=== PATIENT | male | born 1985 | race Caucasian/White ===

== ENCOUNTER 2016-12-07 11:04 | Emergency (ER) | payer MEDICARE, MEDICAID ==
[~2016-12-07] VITALS: Ht 172.7 cm; Wt 81.6 kg
[~2016-12-07 11:04] MED LIST: CYCL10TA9 PO; DOCU-143 PO; NAPR-243 PO; PRED20TA PO; TRAM-42 PO
[2016-12-07 11:11] VITALS: BP 133/94
[2016-12-07] MEDS ORDERED: fentaNYL INJECTION 100 MCG/2 ML AMP ONE (11:17)
[2016-12-07] MEDS ORDERED: fentaNYL INJECTION 100 MCG/2 ML AMP IVP STA (11:23)
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
[2016-12-07 11:28] LABS: BASOPHILS # (AUTO) 0.1 10^3/uL (0.0-0.1); BASOPHILS % (AUTO) 1 % (0-10); EOSINOPHILS # (AUTO) 0.2 10^3/uL (0.0-0.3); EOSINOPHILS % (AUTO) 3 % (0-10); LYMPHOCYTES # (AUTO) 3.2 X 10^3 (1.0-4.0); LYMPHOCYTES % (AUTO) 38 % (12-44); MEAN CORPUSCULAR HEMOGLOBIN 30 PG (25-34); MEAN CORPUSCULAR HGB CONC 34 G/DL (32-36); MEAN CORPUSCULAR VOLUME 89 FL (80-99); MEAN PLATELET VOLUME 9.8 FL (7.4-10.4); MONOCYTES # (AUTO) 0.6 X 10^3 (0.0-1.0); MONOCYTES % (AUTO) 8 % (0-12); NEUTROPHILS # (AUTO) 4.2 X 10^3 (1.8-7.8); NEUTROPHILS % (AUTO) 51 % (42-75); PLATELET COUNT 259 10^3/uL (130-400); RED BLOOD COUNT 5.16 10^6/uL (4.35-5.85); RED CELL DISTRIBUTION WIDTH 12.8 % (10.0-14.5); WHITE BLOOD COUNT 8.2 10^3/uL (4.3-11.0)
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
[2016-12-07 12:00] LABS: ANION GAP 8 MMOL/L (5-14); BLOOD UREA NITROGEN 8 MG/DL (7-18); BUN/CREATININE RATIO 9; CALCIUM 9.1 MG/DL (8.5-10.1); CARBON DIOXIDE 25 MMOL/L (21-32); CHLORIDE 106 MMOL/L (98-107); CREATININE SERUM 0.92 MG/DL (0.60-1.30); GFR ESTIMATED > 60; GLUCOSE 89 MG/DL (70-105); POTASSIUM 4.7 MMOL/L (3.6-5.0); SODIUM 139 MMOL/L (135-145)
[2016-12-07] MEDS ORDERED: SULF1TAB35 PO (12:35)
[2016-12-07] MEDS ORDERED: HYDR-3812 PO (12:35)
== END 2016-12-07 12:44 | disposition home or self-care (01) ==
LOC: EDUNIT# 11:04 → ER 11:05
DX: S21.149A Puncture wound with foreign body of unspecified front wall of thorax without penetration into thoracic cavity, initial encounter (principal); F17.210 Nicotine dependence, cigarettes, uncomplicated; X95.01XA Assault by airgun discharge, initial encounter
CPT/HCPCS: 36415; 71010; 80048; 85025

== ENCOUNTER 2016-12-23 00:20 | Emergency (ER) | payer MEDICAID, MEDICARE ==
[~2016-12-23] VITALS: Ht 172.7 cm; Wt 72.6 kg
[~2016-12-23 00:20] MED LIST changes: +HYDR-3812 PO; +SULF1TAB35 PO
[2016-12-23] MEDS ORDERED: SULF1TAB35 PO (00:39)
[2016-12-23] MEDS ORDERED: MUPI15CR TP (00:39)
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
[2016-12-23 00:43] VITALS: BP 115/75
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
== END 2016-12-23 00:43 | disposition home or self-care (01) ==
LOC: EDUNIT# 00:20 → ER 00:23
DX: R23.8 Other skin changes (principal); G40.909 Epilepsy, unspecified, not intractable, without status epilepticus; F17.210 Nicotine dependence, cigarettes, uncomplicated; Z86.14 Personal history of Methicillin resistant Staphylococcus aureus infection
CPT/HCPCS: 99282

== ENCOUNTER 2017-11-25 15:26 | Emergency (ER) | payer MEDICAID ==
[~2017-11-25] VITALS: Ht 172.7 cm; Wt 81.6 kg
[~2017-11-25 15:26] MED LIST changes: +ACHD5005 PO; -HYDR-3812 PO; +MUPI15CR TP
[2017-11-25] MEDS ORDERED: PRD20T PO (16:32)
--- NOTE | 2017-11-25 16:32 | ED General ---
General Chief Complaint: Lower Extremity Stated Complaint: RIGHT SIDE HIP/NERVE PAIN Nursing Triage Note: pt reports r hip pain x 2 months that is not getting better. Pt reports it shoot down r leg. Nursing Sepsis Screen: No Definite Risk Source of Information: Patient Exam Limitations: No Limitations History of Present Illness Date Seen by Provider: November 25, 2017 Time Seen by Provider: 16:00 Initial Comments This 32-year-old young man presents to the emergency room with 2 months of pain originating at the right SI area and buttocks and radiating down toward the right knee. Last night it was quite exacerbated and he had difficulty sleeping. He also had difficulty getting out of bed this morning so he decided to come to the emergency room. He reports his hip has been out of alignment for about 2 months and he has been seeing a chiropractor for that. His last adjustment was about one month ago. He has not been taking any medications such as Tylenol or ibuprofen. He is unemployed at the moment and has no strenuous activity. He denies any drug or alcohol use. He reports he was on disability for ADHD. Allergies and Home Medications Allergies Coded Allergies: No Known Drug Allergies (Unverified , 11/29/11) Home Medications Mupirocin Calcium 15 Gm Cream..g., 15 GM TP BID Prescribed by: JACLYN HILL on 12/23/1638 Prednisone 20 Mg Tab, 20 MG PO DAILY Prescribed by: LORA MANSFIELD on 11/25/17 1632 Sulfamethoxazole/Trimethoprim 1 Each Tablet, 1 EACH PO BID Prescribed by: WENDY MUSA on 12/07/16 1235 Sulfamethoxazole/Trimethoprim 1 Each Tablet, 1 EACH PO BID Prescribed by: JACLYN HILL on 12/23/16 003 Patient Home Medication List Home Medication List Reviewed: Yes Review of Systems Constitutional: no symptoms reported EENTM: no symptoms reported Respiratory: no symptoms reported Cardiovascular: no symptoms reported Gastrointestinal: no symptoms reported Genitourinary: no symptoms reported Musculoskeletal: see HPI Skin: no symptoms reported Psychiatric/Neurological: No Symptoms Reported Hematologic/Lymphatic: No Symptoms Reported Immunological/Allergic: no symptoms reported Past Weykabv-Sdwnad-Nyslnj Hx Patient Social History Alcohol Use: Occasionally Uses Recreational Drug Use: No Smoking Status: Current Everyday Smoker Type Used: Cigarettes 2nd Hand Smoke Exposure: Yes Recent Foreign Travel: No Contact w/Someone Who Travel: No Recent Infectious Disease Expo: No Recent Hopitalizations: No Physical Abuse: No Sexual Abuse: No Mistreated: No Fear: No Immunizations Up To Date Tetanus Booster (TDap): Less than 5yrs Seasonal Allergies Seasonal Allergies: No Past Medical History Surgeries: No Respiratory: No Cardiac: No Neurological: Yes (X1 SEIZURE AT 6 YRS OF AGE) Seizure Disorder Genitourinary: No Gastrointestinal: No Musculoskeletal: No Endocrine: No HEENT: No Cancer: No Did You Recieve Any Treatments: No Psychosocial: No Nursing Suicide Risk Score: 0 Integumentary: No Blood Disorders: No Physical Exam Vital Signs Vital Signs - First Documented 11/25/17 15:44 Temp 96.7 Pulse 90 Resp 20 B/P (MAP) 121/59 (79) Pulse Ox 99 Capillary Refill : Less Than 3 Seconds General Appearance: No Apparent Distress, WD/WN, Thin HEENT: PERRL/EOMI, Normal ENT Inspection Respiratory: Lungs Clear, Normal Breath Sounds, No Accessory Muscle Use, No Respiratory Distress Cardiovascular: Regular Rate, Rhythm, No Edema, No Murmur Back: Normal Inspection, No Vertebral Tenderness, Other (Is a tender spasmed muscle above the right SI joint) Extremity: Normal Inspection, No Pedal Edema, Other (No significant piriformis tenderness) Neurologic/Psychiatric: Alert, Oriented x3, No Motor/Sensory Deficits, Normal Mood/Affect, 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 Skin: Normal Color, Warm/Dry Progress/Results/Core Measures Suspected Sepsis Recent Fever Within 48 Hours: No Infection Criteria Present: None New/Unexplained Altered Menta: No Sepsis Screen: No Definite Risk SIRS Temperature:96.7 Pulse: 90 Respiratory Rate: 20 Blood Pressure 121 /59 Mean: 79 Results/Orders Vital Signs/I&O Capillary Refill : Less Than 3 Seconds Blood Pressure Mean: 79 Departure Impression Primary Impression: Muscle spasm of back Additional Impression: Sciatica Qualified Codes: M54.30 - Sciatica, unspecified side Disposition: 01 HOME, SELF-CARE Condition: Improved Departure-Patient Inst. Decision time for Depature: 16:28 Referrals: NO,LOCAL PHYSICIAN (PCP/Family) Primary Care Physician Patient Instructions: Sciatica, Sciatica Exercises Add. Discharge Instructions: Take ibuprofen up to 600 mg every 6 hours as needed for pain. Add Tylenol ( acetaminophen) up to 1000 mg every 6 hours as needed for additional pain relief. Complete the prednisone prescription as prescribed. You may use gentle heat such as a heating pad on low setting to help relax the sore muscles. Follow-up with your primary care provider next week if not improving as expected. Return to care if symptoms worsen, especially if you develop difficulty walking due to weakness, dysfunction of your bowels, or difficulty with urination. All discharge instructions reviewed with patient and/or family. Voiced understanding. Scripts Prednisone (Prednisone) 20 Mg Tab 20 MG PO DAILY, #4 TAB Prov: LORA HERRING MD 11/25/17 LORA HERRING MD November 25, 2017 16:32
[2017-11-25 16:37] VITALS: BP 125/87
== END 2017-11-25 16:35 | disposition home or self-care (01) ==
LOC: EDUNIT# 15:26 → ER 15:27
DX: M54.31 Sciatica, right side (principal); M62.830 Muscle spasm of back; F90.9 Attention-deficit hyperactivity disorder, unspecified type; G40.909 Epilepsy, unspecified, not intractable, without status epilepticus; F17.210 Nicotine dependence, cigarettes, uncomplicated; Z79.52 Long term (current) use of systemic steroids
CPT/HCPCS: 99283

== ENCOUNTER 2018-09-16 19:13 | Emergency (ER) | payer SELFPAY ==
[~2018-09-16] VITALS: Ht 172.7 cm; Wt 90.7 kg
[~2018-09-16 19:13] MED LIST changes: +PRD20T PO
--- NOTE | 2018-09-16 19:36 | ED Cough/URI ---
General Chief Complaint: Cough/Cold/Flu Symptoms Stated Complaint: FEVER Source: patient Exam Limitations: no limitations History of Present Illness Date Seen by Provider: Sep 16, 2018 Time Seen by Provider: 19:35 Initial Comments To ER per private vehicle with reports of a three-day history of nonproductive cough, fever up to 104, sore throat and rhinorrhea. Timing/Duration: other (3 days) Severity/Quality: dry cough Associated Symptoms: cough, fever/chills, shortness of breath Allergies and Home Medications Allergies Coded Allergies: No Known Drug Allergies (Unverified , 11/29/11) Home Medications No Active Prescriptions or Reported Meds Patient Home Medication List Home Medication List Reviewed: Yes Review of Systems Review of Systems Constitutional: see HPI, fever, malaise EENTM: see HPI Respiratory: see HPI, cough Cardiovascular: no symptoms reported Genitourinary: no symptoms reported Musculoskeletal: no symptoms reported Skin: no symptoms reported Psychiatric/Neurological: No Symptoms Reported Hematologic/Lymphatic: No Symptoms Reported Past Cdzmluq-Rxpybp-Heorcb Hx Patient Social History Alcohol Use: Occasionally Uses Recreational Drug Use: No Smoking Status: Current Everyday Smoker Type Used: Cigarettes 2nd Hand Smoke Exposure: Yes Recent Foreign Travel: No Contact w/Someone Who Travel: No Recent Hopitalizations: No Immunizations Up To Date Tetanus Booster (TDap): Less than 5yrs Seasonal Allergies Seasonal Allergies: No Past Medical History Surgeries: No Respiratory: No Cardiac: No Neurological: Yes (as child) Seizure Disorder Genitourinary: No Gastrointestinal: No Musculoskeletal: No Endocrine: No HEENT: No Cancer: No Did You Recieve Any Treatments: No Psychosocial: No Integumentary: No Blood Disorders: No Physical Exam Vital Signs - First Documented 09/16/18 19:22 Temp 102.5 Pulse 106 Resp 18 B/P (MAP) 118/71 (87) Pulse Ox 96 O2 Delivery Room Air Capillary Refill : Height: 5'8.00" Weight: 180lbs. oz. 81.204722wj; 21.09 BMI Method:Stated General Appearance: WD/WN, no apparent distress Eyes: Bilateral Eye Normal Inspection, Bilateral Eye PERRL, Bilateral Eye EOMI HEENT: PERRL/EOMI, normal ENT inspection, TMs normal, pharyngeal erythema Neck: non-tender, full range of motion Respiratory: normal breath sounds, no respiratory distress, no accessory muscle use Cardiovascular: regular rate, rhythm Gastrointestinal: normal bowel sounds, non tender, soft Neurologic/Psychiatric: alert, normal mood/affect, oriented x 3 Skin: normal color, warm/dry Progress/Results/Core Measures Suspected Sepsis SIRS Temperature: Pulse: Respiratory Rate: Blood Pressure / Mean: Results/Orders Micro Results Microbiology 09/16/18 Influenza Types A,B Antigen (LUANA) - Final, Complete My Orders Orders - GEORGES WILKERSON APRN Chest Pa/Lat (2 View) (09/16/18 19:33) Influenza A And B Antigens (09/16/18 19:33) Ibuprofen Tablet (Motrin Tablet) (09/16/18 19:45) Acetaminophen Tablet (Tylenol Tablet) (09/16/18 19:45) Medications Given in ED Current Medications Medications Dose Ordered Sig/Erasmo Route Start Time Stop Time Status Last Admin Dose Admin Acetaminophen 1,000 mg ONCE ONCE PO 09/16/18 19:45 09/16/18 19:46 DC 09/16/18 19:41 1,000 MG Ibuprofen 800 mg ONCE ONCE PO 09/16/18 19:45 09/16/18 19:46 DC 09/16/18 19:41 800 MG Vital Signs/I&O 09/16/18 09/16/18 09/16/18 09/16/18 19:22 19:22 19:41 19:41 Temp 102.5 102.5 102.5 Pulse 106 Resp 18 B/P (MAP) 118/71 (87) Pulse Ox 96 O2 Delivery Room Air Room Air Capillary Refill : Departure Impression Primary Impression: Influenza Disposition: 01 HOME, SELF-CARE Condition: Stable Departure-Patient Inst. Decision time for Depature: 20:06 Referrals: NO,LOCAL PHYSICIAN (PCP/Family) Primary Care Physician Patient Instructions: Flu Add. Discharge Instructions: 1. Tylenol and Motrin for pain and fever control 2. Ensure that you drink plenty of fluids, Gatorade Pedialyte or water are fine. All discharge instructions reviewed with patient and/or family. Voiced understanding. Scripts No Active Prescriptions or Reported Meds Work/School Note: Work Release Form Date Seen in the Emergency Department: Sep 16, 2018 Return to Work: Sep 20, 2018 GEORGES WILKERSON APRN Sep 16, 2018 19:36
[2018-09-16] MEDS ORDERED: IBUPROFEN 800 MG (MOTRIN) TAB PO ONE (19:45)
[2018-09-16] MEDS ORDERED: ACETAMINOPHEN 500 MG TAB (TYLENOL) PO ONE (19:45)
[2018-09-16 20:54] VITALS: BP 121/74
--- NOTE | 2018-09-16 21:16 | Diagnostic Imaging Report ---
CHEST PA/LAT (2 VIEW) Indication: Coughing Comparison: 12/07/2016 Findings: No focal pneumonic consolidation, pleural effusion or pneumothorax. Normal heart size and pulmonary vasculature. Stable metallic BB within the subcutaneous tissues of the anterior left chest wall. Impression: No acute cardiopulmonary process. Dictated by: Dictated on workstation # [id number]
== END 2018-09-16 20:55 | disposition home or self-care (01) ==
LOC: EDUNIT# 19:13 → ER 19:13
DX: J11.1 Influenza due to unidentified influenza virus with other respiratory manifestations (principal); G40.909 Epilepsy, unspecified, not intractable, without status epilepticus; F17.210 Nicotine dependence, cigarettes, uncomplicated
CPT/HCPCS: 71046; 87804

== ENCOUNTER 2019-01-02 20:28 | Emergency (ER) | payer MEDICAID ==
[~2019-01-02] VITALS: Ht 172.7 cm; Wt 90.7 kg
--- NOTE | 2019-01-02 21:08 | ED EENT ---
History of Present Illness General Chief Complaint: Dental Problems/Pain Stated Complaint: TOOTHACHE Nursing Triage Note: pt states he has an infection in his lower tooth on the left bottom jaw. Pt has not seen a dentist. Pain is unbearable and has been taking 1000 mg of ibuprofen every 4 hours for the last week. Source: patient, spouse Exam Limitations: no limitations History of Present Illness Date Seen by Provider: Jan 02, 2019 Time Seen by Provider: 21:08 Allergies and Home Medications Allergies Coded Allergies: No Known Drug Allergies (Unverified , 11/29/11) Home Medications No Active Prescriptions or Reported Meds Past Qzedons-Wbyvqz-Zqhppr Hx Patient Social History Alcohol Use: Denies Use Recreational Drug Use: No Smoking Status: Current Everyday Smoker Type Used: Cigarettes 2nd Hand Smoke Exposure: Yes Recent Foreign Travel: No Contact w/Someone Who Travel: No Recent Infectious Disease Expo: No Recent Hopitalizations: No Immunizations Up To Date Tetanus Booster (TDap): Less than 5yrs Seasonal Allergies Seasonal Allergies: No Past Medical History Surgeries: No Respiratory: No Cardiac: No Neurological: Yes (as child) Seizure Disorder Genitourinary: No Gastrointestinal: No Musculoskeletal: No Endocrine: No HEENT: No Cancer: No Did You Recieve Any Treatments: No Psychosocial: No Integumentary: No Blood Disorders: No Physical Exam Vital Signs Vital Signs - First Documented 01/02/19 20:35 Temp 98.8 Pulse 84 Resp 18 B/P (MAP) 116/84 (95) Pulse Ox 100 O2 Delivery Room Air Height, Weight, BMI Height: 5'8.00" Weight: 200lbs. oz. 90.144603bt; 21.09 BMI Method:Stated Progress/Results/Core Measures Results/Orders Vital Signs/I&O 01/02/19 20:35 Temp 98.8 Pulse 84 Resp 18 B/P (MAP) 116/84 (95) Pulse Ox 100 O2 Delivery Room Air Blood Pressure Mean: 95 Departure Impression Primary Impression: Pain due to dental caries Disposition: 01 HOME, SELF-CARE Condition: Improved Departure-Patient Inst. Decision time for Depature: 21:16 Referrals: OWEN VILLASENOR DDS NO,LOCAL PHYSICIAN (PCP) Primary Care Physician Patient Instructions: Dental Pain (DC) Add. Discharge Instructions: All discharge instructions reviewed with patient and/or family. Voiced understanding. Medications as instructed. Tylenol extra strength [id number]-[id number] as directed for pain. Do not use ibuprofen until released by your family practitioner. Soft diet or for liquids until symptoms improve, then increase diet slowly. Follow-up with Dr. VILLASENOR this week for recheck and dental repair. Call Thursday morning for appointment time. Return to the emergency department for worsened symptoms or any other concerns. lidocaine with benzocaine pads: Please 1 pad between the affected teeth and bite down gently for 5 minutes, make sure to spit the gauze pad out after after 5 minutes. Do NOT swallow the gauze pads, lay down with the gauze pad in your mouth, or fall asleep with gauze pad in your mouth due to risk of choking, bowel obstruction, and/or . Scripts Naproxen (Naprosyn) 500 Mg Tablet 500 MG PO BID, #20 TAB 0 Refills Prov: IDANIA MCCALL 01/02/19 Amoxicillin (Amoxicillin) 500 Mg Capsule 1000 MG PO BID, #28 CAP 0 Refills Prov: IDANIA MCCALL 01/02/19 IDANIA MCCALL Jan 02, 2019 21:08
[2019-01-02] MEDS ORDERED: AMOX500C2 PO (21:17)
[2019-01-02] MEDS ORDERED: NAPR-1071 PO (21:17)
[2019-01-02] MEDS ORDERED: RX-AMOXICILLIN 500 MG CAP #3 PPK PO STA (21:20)
[2019-01-02] MEDS ORDERED: HURRICAINE EXT TUBE (BENZOCAINE) XX ONE (21:30)
[2019-01-02] MEDS ORDERED: HYDROcodone/APAP 5 MG/325 MG (LORTAB) TAB PO ONE (21:30)
[2019-01-02] MEDS ORDERED: LIDOCAINE 2% VISCOUS 15 ML UDC PO ONE (21:30)
[2019-01-02 21:40] VITALS: BP 116/84
== END 2019-01-02 21:39 | disposition home or self-care (01) ==
LOC: EDUNIT# 20:28 → ER 20:29
DX: K02.9 Dental caries, unspecified (principal); G40.909 Epilepsy, unspecified, not intractable, without status epilepticus; F17.210 Nicotine dependence, cigarettes, uncomplicated
CPT/HCPCS: 99283

== ENCOUNTER 2019-06-15 01:13 | Emergency (ER) | payer MEDICAID ==
[~2019-06-15] VITALS: Ht 172.7 cm; Wt 83.0 kg
[~2019-06-15 01:13] MED LIST changes: +AMOX500C2 PO; +NAPR-1071 PO
[2019-06-15] MEDS ORDERED: LIDOCAINE 2% VISCOUS 15 ML UDC ONE (02:46)
[2019-06-15] MEDS ORDERED: AMOXICILLIN 500 MG (POLYMOX) CAP PO ONE (02:46)
[2019-06-15] MEDS ORDERED: HURRICAINE EXT TUBE (BENZOCAINE) ONE (02:49)
[2019-06-15 03:02] VITALS: BP 110/87
--- NOTE | 2019-06-15 05:47 | ED EENT ---
History of Present Illness General Stated Complaint: DENTAL PAIN Source: patient Exam Limitations: no limitations History of Present Illness Date Seen by Provider: Jun 15, 2019 Time Seen by Provider: 02:38 Initial Comments Here with 3 days of right lower jaw dental pain. Not better with Tylenol and ibuprofen. Has had similar in the past and needed antibiotics. He knows he needs to follow-up with a dentist. Denies nausea or vomiting. Denies breathing or swallowing problems. Timing/Duration: gradual Severity: moderate Location: mouth, dental Prearrival Treatment: over the counter meds Associated Symptoms: No cough, No facial pain/swelling, No fever, No nasal congestion/drainage, No sore throat; tooth pain Allergies and Home Medications Allergies Coded Allergies: No Known Drug Allergies (Unverified , 11/29/11) Home Medications Amoxicillin 500 Mg Capsule, 1,000 MG PO BID Prescribed by: IDANIA MCCALL on 01/02/192116 Naproxen 500 Mg Tablet, 500 MG PO BID Prescribed by: IDANIA MCCALL on 01/02/192116 Patient Home Medication List Home Medication List Reviewed: Yes Review of Systems Review of Systems Constitutional: see HPI; No chills, No fever Mouth: see HPI Respiratory: No cough, No short of breath Cardiovascular: no symptoms reported Skin: no symptoms reported Past Yutbebl-Hxzajn-Ckofao Hx Past Med/Social Hx: Reviewed Nursing Past Med/Soc Hx Patient Social History Alcohol Use: Denies Use Recreational Drug Use: No Smoking Status: Current Everyday Smoker Type Used: Cigarettes 2nd Hand Smoke Exposure: Yes Recent Foreign Travel: No Contact w/Someone Who Travel: No Recent Hopitalizations: No Immunizations Up To Date Tetanus Booster (TDap): Less than 5yrs Seasonal Allergies Seasonal Allergies: No Past Medical History Surgeries: No Respiratory: No Cardiac: No Neurological: Yes (as child) Seizure Disorder Genitourinary: No Gastrointestinal: No Musculoskeletal: No Endocrine: No HEENT: No Cancer: No Did You Recieve Any Treatments: No Psychosocial: No Integumentary: No Blood Disorders: No Family Medical History Reviewed Nursing Family Hx No Pertinent Family Hx Physical Exam Height, Weight, BMI Height: 5'8.00" Weight: 200lbs. oz. 90.966919br; 21.09 BMI Method:Stated General Appearance: WD/WN, no apparent distress Mouth/Throat: pharynx normal, dental tenderness (near #31/32) Neck: full range of motion, supple Cardiovascular: regular rate, rhythm, no murmur Respiratory: lungs clear, normal breath sounds Gastrointestinal: non tender, soft Neurologic/Psychiatric: alert, oriented x 3 Skin: normal color, warm/dry Progress/Results/Core Measures Results/Orders My Orders Orders - RITA MARCUS MD Lidocaine 2% Viscous 15 Ml (Xylocaine Vi (06/15/19 02:46) Amoxicillin Capsule (Polymox Capsule) (06/15/19 02:46) Benzocaine Extension Tube (Hurricaine Ex (06/15/19 02:49) Progress Progress Note : Progress Note Seen and evaluated. Amoxicillin 500 mg by mouth and written prescription provided. Discharged home with return precautions. Patient verbalize understanding instructions and agreement with plan. Discharged with viscous lidocaine and Hurricaine spray mixture on swabs. Departure Impression Primary Impression: Dental caries Disposition: 01 HOME, SELF-CARE Condition: Improved Departure-Patient Inst. Decision time for Depature: 02:49 Referrals: NO,LOCAL PHYSICIAN (PCP/Family) Primary Care Physician Patient Instructions: Dental Pain (DC) Add. Discharge Instructions: Take medications as directed. Follow-up with your dentist as soon as possible. Tylenol and ibuprofen for pain. Return for worse pain, breathing or swallowing problems, weakness or other concerns as needed. Scripts Amoxicillin (Amoxicillin) 500 Mg Capsule 500 MG PO TID, #30 CAP 0 Refills Prov: RITA MARCUS MD 06/15/19 RITA MARCUS MD Jun 15, 2019 05:47
[2019-06-15] MEDS ORDERED: AMOX500C2 PO (05:50)
== END 2019-06-15 03:02 | disposition home or self-care (01) ==
LOC: EDUNIT# 01:13 → ER 01:16
DX: K02.9 Dental caries, unspecified (principal); G40.909 Epilepsy, unspecified, not intractable, without status epilepticus; F17.210 Nicotine dependence, cigarettes, uncomplicated
CPT/HCPCS: 99283